=== PATIENT | male | born 2000 | race Caucasian/White ===

== ENCOUNTER 2019-01-14 08:53 | Emergency (ER) | payer OTHER ==
[~2019-01-14] VITALS: Ht 190.5 cm; Wt 135.6 kg
[2019-01-14 08:56] VITALS: Ht 190.5 cm; Wt 135.6 kg
[2019-01-14 11:04] VITALS: BP 132/74
== END 2019-01-14 11:04 | disposition home or self-care (01) ==
LOC: ED 08:53
DX: L03.115 Cellulitis of right lower limb (principal)